=== PATIENT | female | born 2000 | race Caucasian/White ===

== ENCOUNTER 2020-05-31 12:31 | Emergency (ER) | payer OTHER ==
[2020-05-31 12:46] VITALS: BP 108/62
[2020-05-31] MEDS ORDERED: DIPH/PERTUSS(ACELL)/TETANUS VAC/PF 0.5 ML SYR (>=10YO) IM ONE (13:05)
--- NOTE | 2020-05-31 13:05 | ER Document Report ---
ED Medical Screen (RME) - General Chief Complaint: Laceration Stated Complaint: EAR LACERATION Time Seen by Provider: 05/31/20 12:55 - HPI Notes: 05/31/20 13:03 20-year-old female presents emergency room for a right ear laceration that she sustained approximately an hour ago after she accidentally hit her head on the headboard while she was wrestling with her boyfriend. Denies any head trauma change in level consciousness. No active bleeding. Is unsure of her last tetanus. No [id number] medications have been tried. Denies any hearing loss. Denies any other area of injury. Vital signs reviewed. GENERAL: Well-appearing, well-nourished and in no acute distress. HEAD: Atraumatic, normocephalic. NECK: Normal range of motion CV: Heart regular rate and rhythm LUNGS: No respiratory distress skin: Right helix with laceration that goes through the cartilage approximately 1 cm. No other area of injury. MDM: Patient seen and examined for rapid initial assessment. Vital signs reviewed. A comprehensive ED assessment and evaluation of the patient, analysis of test results and completion of the medical decision making process will be conducted by additional ED providers. *Note is created using voice recognition software and may contain spelling, syntax or grammatical errors. - Related Data Allergies/Adverse Reactions: No Known Allergies Allergy (Verified 05/31/20 12:53) Past Medical History - Social History Chew tobacco use (# tins/day): No Frequency of alcohol use: None Drug Abuse: None Physical Exam - Vital signs Vitals: Temp Pulse Resp BP Pulse Ox 97.3 F 101 H 18 108/62 100 05/31/20 12:45 05/31/20 12:45 05/31/20 12:45 05/31/20 12:45 05/31/20 12:45 Course - Vital Signs Vital signs: Temp Pulse Resp BP Pulse Ox 97.3 F 101 H 18 108/62 100 05/31/20 12:53 05/31/20 12:45 05/31/20 12:45 05/31/20 12:45 05/31/20 12:45
== END 2020-05-31 15:45 | disposition left against medical advice (07) ==
LOC: ER 12:31
DX: S01.311A Laceration without foreign body of right ear, initial encounter (principal); X58.XXXA Exposure to other specified factors, initial encounter
CPT/HCPCS: 99281